=== PATIENT | female | born 1980 | race Two or more races ===

== ENCOUNTER 2021-05-11 16:10 | Inpatient (IN) | payer OTHER ==
[~2021-05-11] VITALS: Ht 152.4 cm; Wt 66.2 kg
[2021-05-12] MEDS ORDERED: ATORVASTATIN CA10 MG PO (11:56)
[2021-05-12] MEDS ORDERED: SYNTHROID75 MCG PO (11:56)
== END 2021-05-19 09:36 | disposition home or self-care (01) | DRG 743 ==
LOC: SURH 05-12 09:30 → O/R 05-17 07:10 → SURH 05-17 09:30 → OB/GYN 05-17 16:34
PROVIDERS: ADMIT Obstetrics & Gynecology; ATTEND Obstetrics & Gynecology
PROC: 0UT70ZZ Resection of Bilateral Fallopian Tubes, Open Approach (ICD-10-PCS; 2021-05-17)
PROC: 0UB00ZZ Excision of Right Ovary, Open Approach (ICD-10-PCS; 2021-05-17)
PROC: 0UT90ZZ Resection of Uterus, Open Approach (ICD-10-PCS; principal; 2021-05-17 14:30)
DX: D25.2 Subserosal leiomyoma of uterus (principal); N84.0 Polyp of corpus uteri; Z20.822 Contact with and (suspected) exposure to COVID-19

== ENCOUNTER 2024-05-17 14:51 | Emergency (ER) | payer OTHER ==
[~2024-05-17] VITALS: Ht 149.9 cm; Wt 68.0 kg
[~2024-05-17 14:51] MED LIST: ATORVASTATIN CA10 MG PO; SYNTHROID75 MCG PO
[2024-05-17 18:34] LABS: HEMATOCRIT 40.4 % (36.0-45.00); HEMOGLOBIN 13.4 g/dL (12.0-15.00); MEAN CELL VOLUME 80.5 fL (80.00-100.00); MEAN CORPUSCULAR HEMOGLOBIN 26.7 pg (27.00-32.0); MEAN CORPUSCULAR HGB CONC 33.1 g/dl (32.0-36.0); PLATELET COUNT 248 K/uL (150-450); RED BLOOD COUNT 5.01 M/uL (4.00-6.00); RED CELL DISTRIBUTION WIDTH 15.1 % (11.5-14.5)
[2024-05-17 19:04] LABS: PH,URINE 5.5 (5.0-8.0); URINE APPEARANCE Cloudy; URINE BILIRRUBIN Negative (NEGATIVE); URINE BLOOD Moderate; URINE COLOR Yellow; URINE GLUCOSE Negative (NEGATIVE); URINE KETONE Negative (NEGATIVE); URINE LEUKOCYTE Moderate; URINE NITRATE Negative; URINE PROTEIN 30 (NEGATIVE); URINE UROBILINOGEN 0.2 E.U./dl
[2024-05-17 19:08] LABS: URINE BACTERIA 5863.9 uL (0.0-1933); URINE EPITHELIAL CELLS 15.3 uL (0.0-38.8); URINE RBC 57.1 uL (0.0-20.8); URINE WBC 293.5 uL (0.0-23.2)
[2024-05-17 19:24] LABS: URINE CAST 0.44 uL (0.0-1.40)
[2024-05-17] MEDS ORDERED: CEFTRIAXONE SODIUM 1,000 MG VIAL IM ONE (20:30)
[2024-05-17] MEDS ORDERED: MACROBID 100 M100 MG PO (20:44)
[2024-05-17] MEDS ORDERED: METRONIDAZOLE500 MG PO (20:44)
[2024-05-17] MEDS ORDERED: LIDOCAINE HCL 1% 10ML VIAL ONE (20:48)
[2024-05-17] MEDS ORDERED: CEFTRIAXONE SODIUM 1,000 MG VIAL ONE (20:48)
== END 2024-05-17 21:47 | disposition home or self-care (01) ==
LOC: ER 14:52
PROVIDERS: Preventive Medicine Public Health & General Preventive Medicine
DX: N39.0 Urinary tract infection, site not specified (principal); N76.0 Acute vaginitis; B96.89 Other specified bacterial agents as the cause of diseases classified elsewhere; E03.9 Hypothyroidism, unspecified

== ENCOUNTER 2024-12-03 10:00 | Day surgery (SDC) | payer OTHER ==
[2024-11-20 10:17] VITALS: BP 120/76
[2024-11-20 10:33] LABS: BASO % 0.7 % (0.1-1.2); EOS # 0.19 (0.04-0.54); EOS % 2.7 % (0.7-7.0); LYMPH # 2.25 (1.18-3.74); LYMPH % 32.2 % (19.3-53.1); MEAN PLATELET VOLUME 9.00 fl (9.4-12.4); MONO # 0.50 (0.24-0.82); MONO % 7.2 % (4.7-12.5); NEUT # 3.99 (1.56-6.13); NEUT % 57.1 % (34.0-71.1); RED CELL DISTRIBUTION WIDTH 14.3 % (11.6-14.4)
[2024-11-20 10:51] LABS: URINE APPEARANCE Clear; URINE BILIRRUBIN Negative (NEGATIVE); URINE BLOOD Negative; URINE COLOR Yellow; URINE GLUCOSE Negative (NEGATIVE); URINE KETONE Negative (NEGATIVE); URINE LEUKOCYTE Negative; URINE NITRATE Negative; URINE PROTEIN Negative (NEGATIVE); URINE UROBILINOGEN 0.2 E.U./dl
[2024-11-20 10:57] LABS: URINE BACTERIA 79.1 uL (0.0-1933)
[2024-11-20 11:26] LABS: INR 1.01; URINE CAST 0.00 uL (0.0-1.40); URINE EPITHELIAL CELLS 0.3 uL (0.0-38.8); URINE RBC 1.6 uL (0.0-20.8); URINE WBC 1.0 uL (0.0-23.2)
[2024-11-20 11:37] LABS: ALT/SGPT 28.0 U/L (12-78); AST/SGOT 18.0 U/L (15-37); BILIRUBIN TOTAL 0.41 mg/dL (0.3-1.2); BUN CREA RATIO 20.0 (7.0-25.0); CREATININE SERUM 0.45 mg/dL (0.55-1.02); GFR 150.0; GLOBULINA 3.8 G/DL (2.4-3.5); GLUCOSE FASTING 100.0 mg/dL (65-100); OSMOLALITY SERUM 282.0 MOSM/KG (275-295)
[~2024-12-03] VITALS: Ht 152.4 cm; Wt 70.3 kg
[~2024-12-03 10:00] MED LIST changes: +MACROBID 100 M100 MG PO; +METRONIDAZOLE500 MG PO
[2024-12-03] MEDS ORDERED: POVIDONE-IODINE 118 ML BOTT TOP ONE (12:00)
[2024-12-03] MEDS ORDERED: SUGAMMADEX SODIUM 200 MG/2 ML VIAL IV ONE (13:21)
== END 2024-12-03 16:25 | disposition home or self-care (01) ==
LOC: CIR.AMB 10:00
PROVIDERS: ATTEND Obstetrics & Gynecology
DX: N83.11 Corpus luteum cyst of right ovary (principal); N83.12 Corpus luteum cyst of left ovary; N83.02 Follicular cyst of left ovary; N83.01 Follicular cyst of right ovary